=== PATIENT | male | born 1950 | race Caucasian/White ===

== ENCOUNTER 2021-04-05 19:28 | Observation (INO) ==
--- NOTE | 2021-04-05 20:13 | Emergency Department Note ---
History of Present Illness General Chief complaint: Abdominal Pain Stated complaint: EXTREME PAIN LEFT ABDOMEN, CAN'T EAT/DRING Time Seen by Provider: 04/05/21 19:49 Source: patient Mode of arrival: ambulatory Limitations: no limitations History of Present Illness Maximum Pain Intensity: 6 This patient is a 70-year-old male who comes in with left lower abdominal pain for several weeks it gets intense at times he is not been feeling well for 2 months he is normally very active runner and he has been losing weight significantly he is not able to eat he says when he eats he gets very nauseated he is lost a lot of muscle mass. He has not seen a doctor in years and is on no medication and knows of no medical problems. He said no fall or trauma. No fever or chills. No urinary symptoms such as dysuria hematuria no melena stool he says he does have some blood at times at night but that is been going on chronically. Occasionally pain radiates to his testicle but no testicular pain swelling or redness. He has been during the vaccine x2. No chest pain shortness breath or cough. No sick contacts. No focal numbness or weakness. Nothing particular makes his pain better or worse Home Medications Medication Instructions Recorded Confirmed Type cholecalciferol (vitamin D3) 50 50 mcg PO HS 04/05/21 04/05/21 History mcg (2,000 unit) capsule (Vitamin D3) diphenhydramine HCl 50 mg capsule 50 mg PO HS PRN 04/05/21 04/05/21 History multivitamin 1 tab PO HS 04/05/21 04/05/21 History omega 7-kru-sno-fish oil 500 mg 1 cap PO HS 04/05/21 04/05/21 History (200mg-300mg)-1,000 mg capsule Allergies Allergy/AdvReac Type Severity Reaction Status Date / Time No Known Allergies Allergy Unverified 04/05/21 20:51 Past Med/Surg History Social History Smoking Status: Never smoker Feels Safe at Home: Yes Immunizations: Past medical historydenies any known medical history although he has had very little interaction with the healthcare system Social history he lives with his he is physically active. 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 He denies that he takes Tylenol with that and the Benadryl preparation does not have Tylenol in it Review of Systems A total of 10 systems reviewed and were otherwise negative Physical Exam Vital Signs Vital Signs - 24 hr 04/05/21 19:34 04/05/21 20:33 04/05/21 20:53 Temperature 36.3 C L Temperature Source Temporal Artery Scan Pulse Rate 52 L 58 L 60 Pulse Rate [Left] Pulse Rate from SpO2 Sensor 62 Pulse Rhythm [Left] Pulse Strength [Left] Respiratory Rate 20 18 22 Respiratory Effort / Characteristics Non-Labored Spontaneous Respiratory Depth Normal Respiratory Pattern Regular Blood Pressure 127/84 132/81 130/74 Blood Pressure Mean 98 98 92 Pulse Oximetry 95 93 Oxygen Delivery Method Room Air Sepsis Recent Fever Within 48 Hours No Sepsis New/Unexplained Change in Mental Status No Sepsis Action Taken by Nursing No Action Required 04/05/21 21:00 04/05/21 21:24 04/05/21 23:47 Temperature Temperature Source Pulse Rate 62 55 L Pulse Rate [Left] 75 Pulse Rate from SpO2 Sensor 60 Pulse Rhythm [Left] Regular Pulse Strength [Left] Normal Respiratory Rate 17 18 Respiratory Effort / Characteristics Non-Labored Spontaneous Respiratory Depth Normal Respiratory Pattern Blood Pressure 127/77 Blood Pressure Mean 93 Pulse Oximetry 98 96 98 Oxygen Delivery Method Room Air Room Air Sepsis Recent Fever Within 48 Hours Sepsis New/Unexplained Change in Mental Status Sepsis Action Taken by Nursing General: Well developed well nourished cachectic older male who appears in no acute distress, breathing comfortably on room air. Normal speech HEENT: Normal cephalic atraumatic. Pupils are equal round and reactive to light. Extraocular movements are intact. Oropharynx is pink with moist mucous membranes. No swelling of the mouth lips or tongue. Neck: Supple with a midline trachea. No meningeal signs or stiffness, no JVD or bruits. No Stridor. Chest: Clear to auscultation bilaterally. No wheezes or rhonchi. No increased work of breathing. Heart: Regular rate and rhythm without murmurs or gallops. Abdomen: Soft nontender, nondistended without rebound guarding or rigidity. : Normal male genitalia no testicular swelling masses in the scrotum or tenderness redness or warmth Extremities: No cyanosis clubbing or edema. No calf tenderness or assymetry Spine/Back. Non tender to palpation. No CVA tenderness Skin: Good turgor without rashes. Neurologic exam: Cranial nerves two through 12 are intact. Motor and sensation are intact and symmetrical throughout. Course Administered Medications Ketorolac Tromethamine (Ketorolac Tromethamine 15 Mg/Ml Vial) 15 mg IV Q6H PRN PRN Reason: Moderate Pain Stop: 04/11/21 00:04 Last Admin: 04/06/21 00:23 Dose: 15 mg Documented by: [id number] Discontinued Medications Sodium Chloride (Nss) 500 mls @ 999 mls/hr IV .Q31M PATIENCE Stop: 04/05/21 20:45 Last Infusion: 04/05/21 21:26 Dose: 0 mls/hr Documented by: [id number] Admin: 04/05/21 20:53 Dose: 999 mls/hr Documented by: [id number] Ioversol (Optiray 320 100ml) 94 ml IV ONCE ONE Stop: 04/05/21 21:24 Last Admin: 04/05/21 21:23 Dose: 1 ml Documented by: [id number] Medical Decision Making Differential Diagnosis Weakness, dehydration, electrolyte or metabolic abnormality, malignancy, colitis, diverticulitis, anemia, vivid, endocrinologic, anemia Medical Records Attestation: I reviewed the patient's medical records. Home Medications Current Medication List: was personally reviewed by me Laboratory Data Attestation: I reviewed the patient's lab results. Result diagrams: 04/05/21 20:37 04/05/21 20:37 Lab Results 04/05/21 04/05/21 04/05/21 Range/Units 20:32 20:37 20:37 WBC 8.44 (4.8-10.8) K/uL RBC 4.03 L (4.7-6.1) M/uL Hgb 13.0 L (14.0-18.0) g/dL Hct 37.7 L (42-52) % MCV 93.5 (80-100) fL MCH 32.3 (25-34) pg MCHC 34.5 (32-36) g/dL RDW Std Deviation 44.1 (36.4-46.3) fL RDW Coeff of Russ 12.8 (11.5-14.5) % Plt Count 236 (130-400) K/uL MPV 10.0 (7.4-10.4) fL Immature Gran % (Auto) 0.1 % Neut % (Auto) 85.9 % Lymph % (Auto) 6.0 % [place] % (Auto) 7.0 % Eos % (Auto) 0.9 % Baso % (Auto) 0.1 % Neut # (Auto) 7.24 H (1.4-6.5) K/uL Lymph # (Auto) 0.51 L (1.2-3.4) K/uL [place] # (Auto) 0.59 (0.11-0.59) K/uL Eos # (Auto) 0.08 (0-0.5) K/uL Baso # (Auto) 0.01 (0-0.2) K/uL Immature Gran # (Auto) 0.01 (0.00-0.02) K/uL PT 10.6 (9.0-12.0) Seconds INR 1.0 (0.9-1.1) Sodium (136-145) mmol/L Potassium (3.5-5.1) mmol/L Chloride (98-107) mmol/L Carbon Dioxide (21-32) mmol/L Anion Gap (3-11) BUN (7-18) mg/dl Creatinine (0.6-1.4) mg/dl Est Cr Clr Drug Dosing ml/min Est GFR ( Amer) ml/min Est GFR (Non-Af Amer) ml/min BUN/Creatinine Ratio (10-20) Glucose (70-99) mg/dl Lactate (0.4-2.0) mmol/L Calcium (8.5-10.1) mg/dl Magnesium (1.8-2.4) mg/dl Total Bilirubin (0.2-1) mg/dl AST (15-37) U/L ALT (12-78) U/L Alkaline Phosphatase (45-117) U/L Total Creatine Kinase (39-308) U/L Troponin I (0-0.045) ng/ml Total Protein (6.4-8.2) gm/dl Albumin (3.4-5.0) gm/dl Globulin (2.5-4.0) gm/dl Albumin/Globulin Ratio (0.9-2) TSH (0.300-4.500) uIu/ml Urine Color Dark Yellow Urine Appearance Clear (Clear) Urine pH 6.0 (4.5-7.5) Ur Specific [place] 1.017 (1.000-1.030) Urine Protein 1+ H (Negative) Urine Glucose (UA) Negative (Negative) Urine Ketones 1+ H (Negative) Urine Blood 3+ H (Negative) Urine Nitrite Negative (Negative) Urine Bilirubin Negative (Negative) Urine Urobilinogen Negative (Negative) Ur Leukocyte Esterase 1+ H (Negative) Urine WBC (Auto) 5-10 H (0-5) /hpf Urine RBC (Auto) >30 H (0-4) /hpf U Hyaline Cast (Auto) 0 (0-5) /lpf U Epithel Cells (Auto) 0-5 (0-5) /lpf Urine Bacteria (Auto) Negative (Negative) COVID-19 Eval Order SARS-CoV-2 (PCR) (Negative) 04/05/21 04/05/21 04/05/21 Range/Units 20:37 20:37 21:05 WBC (4.8-10.8) K/uL RBC (4.7-6.1) M/uL Hgb (14.0-18.0) g/dL Hct (42-52) % MCV (80-100) fL MCH (25-34) pg MCHC (32-36) g/dL RDW Std Deviation (36.4-46.3) fL RDW Coeff of Russ (11.5-14.5) % Plt Count (130-400) K/uL MPV (7.4-10.4) fL Immature Gran % (Auto) % Neut % (Auto) % Lymph % (Auto) % [place] % (Auto) % Eos % (Auto) % Baso % (Auto) % Neut # (Auto) (1.4-6.5) K/uL Lymph # (Auto) (1.2-3.4) K/uL [place] # (Auto) (0.11-0.59) K/uL Eos # (Auto) (0-0.5) K/uL Baso # (Auto) (0-0.2) K/uL Immature Gran # (Auto) (0.00-0.02) K/uL PT (9.0-12.0) Seconds INR (0.9-1.1) Sodium 136 (136-145) mmol/L Potassium 4.1 (3.5-5.1) mmol/L Chloride 100 (98-107) mmol/L Carbon Dioxide 27 (21-32) mmol/L Anion Gap 9.0 (3-11) BUN 15 (7-18) mg/dl Creatinine 0.94 (0.6-1.4) mg/dl Est Cr Clr Drug Dosing 57.5 ml/min Est GFR ( Amer) 93.5 ml/min Est GFR (Non-Af Amer) 80.7 ml/min BUN/Creatinine Ratio 15.5 (10-20) Glucose 103 H (70-99) mg/dl Lactate 1.2 (0.4-2.0) mmol/L Calcium 9.1 (8.5-10.1) mg/dl Magnesium 2.2 (1.8-2.4) mg/dl Total Bilirubin 0.5 (0.2-1) mg/dl AST 48 H (15-37) U/L ALT 43 (12-78) U/L Alkaline Phosphatase 173 H (45-117) U/L Total Creatine Kinase 134 (39-308) U/L Troponin I 0.020 (0-0.045) ng/ml Total Protein 6.8 (6.4-8.2) gm/dl Albumin 3.2 L (3.4-5.0) gm/dl Globulin 3.6 (2.5-4.0) gm/dl Albumin/Globulin Ratio 0.9 (0.9-2) TSH 2.440 (0.300-4.500) uIu/ml Urine Color Urine Appearance (Clear) Urine pH (4.5-7.5) Ur Specific [place] (1.000-1.030) Urine Protein (Negative) Urine Glucose (UA) (Negative) Urine Ketones (Negative) Urine Blood (Negative) Urine Nitrite (Negative) Urine Bilirubin (Negative) Urine Urobilinogen (Negative) Ur Leukocyte Esterase (Negative) Urine WBC (Auto) (0-5) /hpf Urine RBC (Auto) (0-4) /hpf U Hyaline Cast (Auto) (0-5) /lpf U Epithel Cells (Auto) (0-5) /lpf Urine Bacteria (Auto) (Negative) COVID-19 Eval Order Covid19 at [facility] SARS-CoV-2 (PCR) (Negative) 04/05/21 Range/Units 21:05 WBC (4.8-10.8) K/uL RBC (4.7-6.1) M/uL Hgb (14.0-18.0) g/dL Hct (42-52) % MCV (80-100) fL MCH (25-34) pg MCHC (32-36) g/dL RDW Std Deviation (36.4-46.3) fL RDW Coeff of Russ (11.5-14.5) % Plt Count (130-400) K/uL MPV (7.4-10.4) fL Immature Gran % (Auto) % Neut % (Auto) % Lymph % (Auto) % [place] % (Auto) % Eos % (Auto) % Baso % (Auto) % Neut # (Auto) (1.4-6.5) K/uL Lymph # (Auto) (1.2-3.4) K/uL [place] # (Auto) (0.11-0.59) K/uL Eos # (Auto) (0-0.5) K/uL Baso # (Auto) (0-0.2) K/uL Immature Gran # (Auto) (0.00-0.02) K/uL PT (9.0-12.0) Seconds INR (0.9-1.1) Sodium (136-145) mmol/L Potassium (3.5-5.1) mmol/L Chloride (98-107) mmol/L Carbon Dioxide (21-32) mmol/L Anion Gap (3-11) BUN (7-18) mg/dl Creatinine (0.6-1.4) mg/dl Est Cr Clr Drug Dosing ml/min Est GFR ( Amer) ml/min Est GFR (Non-Af Amer) ml/min BUN/Creatinine Ratio (10-20) Glucose (70-99) mg/dl Lactate (0.4-2.0) mmol/L Calcium (8.5-10.1) mg/dl Magnesium (1.8-2.4) mg/dl Total Bilirubin (0.2-1) mg/dl AST (15-37) U/L ALT (12-78) U/L Alkaline Phosphatase (45-117) U/L Total Creatine Kinase (39-308) U/L Troponin I (0-0.045) ng/ml Total Protein (6.4-8.2) gm/dl Albumin (3.4-5.0) gm/dl Globulin (2.5-4.0) gm/dl Albumin/Globulin Ratio (0.9-2) TSH (0.300-4.500) uIu/ml Urine Color Urine Appearance (Clear) Urine pH (4.5-7.5) Ur Specific [place] (1.000-1.030) Urine Protein (Negative) Urine Glucose (UA) (Negative) Urine Ketones (Negative) Urine Blood (Negative) Urine Nitrite (Negative) Urine Bilirubin (Negative) Urine Urobilinogen (Negative) Ur Leukocyte Esterase (Negative) Urine WBC (Auto) (0-5) /hpf Urine RBC (Auto) (0-4) /hpf U Hyaline Cast (Auto) (0-5) /lpf U Epithel Cells (Auto) (0-5) /lpf Urine Bacteria (Auto) (Negative) COVID-19 Eval Order SARS-CoV-2 (PCR) NEGATIVE (Negative) Imaging Data Attestation: I personally reviewed and interpreted this imaging study as follows: My Impression: Chest x-rayno acute infiltrate, failure, pneumothorax seen Radiologist's Impression: STAT RAD CT ABDOMEN & PELVIS With Contrast: Diffuse hepatic metastases. Left extrarenal pelvis versus hydronephrosis. Diverticulosis. No obstruction. Normal appendix. No fracture. CT CHEST With Contrast: CT Chest The lungs are clear. Heart size is normal. No pathologically enlarged lymph nodes. No fracture. There is debris in the esophagus which puts the patient at increased risk of aspiration. ECG Data Attestation: I personally reviewed and interpreted this ECG as follows: Indication: + nausea, + vomiting and + weakness Rate (beats per minute): 67 Rhythm: + normal sinus ECG Intervals/blocks: + Left anterior fascicular block, + Normal QRS, + Normal QT and + Normal [place] ECG [place]: + Left axis deviation ECG ST segments: + Normal ST segments ECG Findings: no PACs or no PVCs Comparison ECG Date: no prior available MDM Narrative This patient comes in after having weight loss and abdominal pain he has not gone to the doctor in years. I am concerned that he has been losing weight he looks cachectic. IV access was established and he was hydrated with an IV normal saline bolus. multiple blood testing was obtained. CAT scan was obtained. EKG was obtained. he was reassessed frequently. His EKG does not suggest acute coronary syndrome or arrhythmia. He has no significant electrolyte or metabolic abnormalities. CAT scans of the chest, abdomen, and pelvis shows some debris in the esophagus he also has what appears to be liver mets. He has minimal hard time swallowing. I suspect he may have a GI cancer such as esophageal cancer that has metastasized to the liver. He is not been doing well at home and losing weight. He was hydrated with IV normal saline here. I do think he needs to be admitted for further work-up and likely endoscopy I have consulted Dr. Marino to see him his Covid test was negative. He is cardiac monitoring: Orders placed in EMR for continuous cardiac monitoring and he was found to be in normal sinus rhythm with a rate of 75 Impression & Plan Liver metastases, Weakness, Dehydration, Lab test negative for COVID-19 virus, Dysphagia Discharge Plan Visit Data Chief Complaint: Abdominal Pain Stated Complaint: EXTREME PAIN LEFT ABDOMEN, CAN'T EAT/DRING ED Provider: Don Storey Discharge Problem: Liver metastases, Weakness, Dehydration, Lab test negative for COVID-19 virus, Dysphagia Forms Stand Alone Forms: My [facility] Prescriptions Prescriptions: No Action multivitamin Tablet 1 tab PO HS RF: 0 diphenhydramine HCl [Benadryl] 50 mg Capsule 50 mg PO HS PRN (Reason: Sleep) RF: 0 cholecalciferol (vitamin D3) [Vitamin D3] 50 mcg (2,000 unit) Capsule 50 mcg PO HS RF: 0 omega 4-isq-nyx-fish oil [Fish Oil High Potency] 500-1,000 mg Capsule 1 cap PO HS RF: 0 Referrals Referrals: PCP,NO [Physician] - Discharge Problem: Dysphagia Qualifiers: Dysphagia type: unspecified Qualified Code(s): R13.10 - Dysphagia, unspecified
[2021-04-05] MEDS ORDERED: SODIUM CHLORIDE 0.9% 500 ML IV SCH (20:15)
[2021-04-05 20:52] LABS: Basophils # (auto) 0.01 K/uL (0-0.2); Basophils % (auto) 0.1 %; Eosinophils # (auto) 0.08 K/uL (0-0.5); Eosinophils % (auto) 0.9 %; Hematocrit (blood only) 37.7 % (42-52); Immature Granulocytes # (auto) 0.01 K/uL (0.00-0.02); Immature Granulocytes % (auto) 0.1 %; Lymphocytes # (auto) 0.51 K/uL (1.2-3.4); Mean Corpuscular Hemoglobin 32.3 pg (25-34); Mean Corpuscular Hgb Conc 34.5 g/dL (32-36); Mean Corpuscular Volume 93.5 fL (80-100); Monocytes # (auto) 0.59 K/uL (0.11-0.59); Neutrophils # (auto) 7.24 K/uL (1.4-6.5); Neutrophils % (auto) 85.9 %; Platelet Count 236 K/uL (130-400); RDW Coefficient of Variation 12.8 % (11.5-14.5); RDW Standard Deviation 44.1 fL (36.4-46.3); Red Blood Count 4.03 M/uL (4.7-6.1); White Blood Count 8.44 K/uL (4.8-10.8)
[2021-04-05 21:01] LABS: Prothrombin Time 10.6 Seconds (9.0-12.0)
[2021-04-05 21:09] LABS: Albumin Level 3.2 gm/dl (3.4-5.0); BUN Creatinine Ratio 15.5 (10-20); Calcium 9.1 mg/dl (8.5-10.1); Creatinine Clr Calc Pharmacy 57.5 ml/min; Est GFR (African American) 93.5 ml/min; Est GFR (Non-African American) 80.7 ml/min; Magnesium 2.2 mg/dl (1.8-2.4); Potassium 4.1 mmol/L (3.5-5.1)
[2021-04-05 21:16] LABS: Appearance Urine Clear (Clear); Bacteria Urine Automated Negative (Negative); Bilirubin Urine Negative (Negative); Blood Urine 3+ (Negative); Cast Urine Automated 0 /lpf (0-5); Color Urine Dark Yellow; Epithelial Cell Urine Auto 0-5 /lpf (0-5); Glucose Urine UA Negative (Negative); Ketones Urine 1+ (Negative); Leukocyte Esterase Urine 1+ (Negative); Nitrite Urine Negative (Negative); Protein Urine 1+ (Negative); RBC Urine Automated >30 /hpf (0-4); Specific Gravity Urine 1.017 (1.000-1.030); Urobilinogen Urine Negative (Negative)
[2021-04-05 21:20] LABS: Albumin Globulin Ratio 0.9 (0.9-2); Bilirubin,Total 0.5 mg/dl (0.2-1); Globulin 3.6 gm/dl (2.5-4.0); Thyroid Stimulating Hormone 2.44 uIu/ml (0.300-4.500); Total Protein 6.8 gm/dl (6.4-8.2); Troponin I 0.02 ng/ml (0-0.045)
[2021-04-05] MEDS ORDERED: OPTIRAY 320 100ml IV ONE (21:23)
--- NOTE | 2021-04-05 23:50 | History & Physical Report ---
Date of Service April 05, 2021 Assessment & Plan (1) Liver metastases: Plan: Diffuse hepatic metastases/abnormal weight loss/vomiting with liquids and solids/esophageal debris- NPO NSS + KCl 20 mEq at 100 mils per hour Famotidine 20 mg IV every 12 hours Zofran 4 mg IV every 6 hours as needed Toradol 15 mg IV every 6 hours as needed moderate pain Consult gastroenterology Consult oncology (2) Vomiting: Plan: See above (3) Esophagus disorder: Plan: Debris noted in esophagus on CT scan Inability to swallow liquids or solids Concern regarding esophageal cancer and obstruction (4) Weight loss, abnormal: Plan: Unspecified but significant amount of weight loss concerns for patient and (5) Weakness: Plan: See above History of Present Illness Chief Complaint: The patient presents to the emergency department with several weeks of generalized abdominal pain and weight loss, with more recent issues with inability to hold down solid or liquid foods Primary Care Provider: Jack Lynn MD The patient is a 70-year-old male with no significant past medical history, who presents with the above symptoms. He reports that he runs every other day, and on the opposite days, does exercise such as push-ups. He presents with worsening symptoms and he and his are concerned regarding his excessive weight loss and inability to hold food or liquids down. They cannot quantitate how much weight he has lost and over what interval of time. Allergies Allergy/AdvReac Type Severity Reaction Status Date / Time No Known Allergies Allergy Unverified 04/05/21 20:51 Home Medications Medication Instructions Recorded Confirmed Type cholecalciferol (vitamin D3) 50 50 mcg PO HS 04/05/21 04/05/21 History mcg (2,000 unit) capsule (Vitamin D3) diphenhydramine HCl 50 mg capsule 50 mg PO HS PRN 04/05/21 04/05/21 History multivitamin 1 tab PO HS 04/05/21 04/05/21 History omega 6-biv-nbg-fish oil 500 mg 1 cap PO HS 04/05/21 04/05/21 History (200mg-300mg)-1,000 mg capsule Past Med/Surg History Social History Smoking Status: Never smoker Hx Alcohol Use: No Hx Substance Use: No Preferred Language: Hong Konger Beliefs That Will Affect Care: None Current Living Situation: Spouse Other Information That Helps Us Care for You: No Feels Safe at Home: Yes Safety Concerns: Feels Safe At This Time Review of Systems Review of Systems: The patient denies chest pain, palpitations, shortness of breath, dyspnea on exertion, cough, lower extremity swelling, sore throat, fevers, chills, sweats, diarrhea , constipation, blood in urine or stool, dysuria, urinary frequency or urgency, lightheadedness, dizziness, headache, memory loss, loss of consciousness, rash, abnormal bruising or bleeding, imbalance, focal weakness, numbness or tingling in arms or legs, generalized arthralgias or myalgias, back or neck pain, or night sweats. The review of systems is otherwise negative other than for that already noted above, and at least 10 systems have been reviewed. Physical Exam Physical Exam: The patient is awake, alert and oriented 3, appears very thin, normocephalic and atraumatic, lying in bed and in no acute distress. HEENT--PERRL, EOMI, mucous membranes and oropharynx normal. Neck--supple. No JVD. No bruits. Thyroid normal, trachea midline, no adenopathy. Heart--normal S1 and S2. No murmurs, rubs or gallops. Lungs--clear bilaterally, no respiratory distress, no accessory muscle use. Abdomen--normal bowel sounds and soft. Nontender. Nondistended. Extremities--no cyanosis or clubbing. No edema. Dermatologic--normal skin turgor, normal color, no abnormal lymph nodes, no rash. Neurologic--cranial nerves II through XII grossly intact. Rheumatologic--normal range of motion. Psychiatric--normal affect. Results & Data Results & Data ([facility]) Vital Signs (Past 12 Hours) Vital Signs Temp Pulse Pulse Resp BP Pulse Ox 04/05/21 23:47 75 18 98 04/05/21 21:24 55 L 96 04/05/21 21:00 62 17 127/77 98 04/05/21 20:53 60 22 130/74 93 04/05/21 20:33 58 L 18 132/81 04/05/21 19:34 97.3 F L 52 L 20 127/84 95 Laboratory Results Laboratory Results WBC 8.44 K/uL (4.8-10.8) 04/05/21 20:37 RBC 4.03 M/uL (4.7-6.1) L 04/05/21 20:37 Hgb 13.0 g/dL (14.0-18.0) L 04/05/21 20:37 Hct 37.7 % (42-52) L 04/05/21 20:37 MCV 93.5 fL (80-100) 04/05/21 20:37 MCH 32.3 pg (25-34) 04/05/21 20:37 MCHC 34.5 g/dL (32-36) 04/05/21 20:37 RDW Std Deviation 44.1 fL (36.4-46.3) 04/05/21 20:37 RDW Coeff of Russ 12.8 % (11.5-14.5) 04/05/21 20: Plt Count 236 K/uL (130-400) 04/05/21 20:37 MPV 10.0 fL (7.4-10.4) 04/05/21 20:37 Immature Gran % (Auto) 0.1 % 04/05/21 20:37 Neut % (Auto) 85.9 % 04/05/21 20:37 Lymph % (Auto) 6.0 % 04/05/21 20:37 [place] % (Auto) 7.0 % 04/05/21 20:37 Eos % (Auto) 0.9 % 04/05/21 20:37 Baso % (Auto) 0.1 % 04/05/21 20:37 Neut # (Auto) 7.24 K/uL (1.4-6.5) H 04/05/21 20:37 Lymph # (Auto) 0.51 K/uL (1.2-3.4) L 04/05/21 20:37 [place] # (Auto) 0.59 K/uL (0.11-0.59) 04/05/21 20:37 Eos # (Auto) 0.08 K/uL (0-0.5) 04/05/21 20:37 Baso # (Auto) 0.01 K/uL (0-0.2) 04/05/21 20:37 Immature Gran # (Auto) 0.01 K/uL (0.00-0.02) 04/05/21 20:37 PT 10.6 Seconds (9.0-12.0) 04/05/21 20:37 INR 1.0 (0.9-1.1) 04/05/21 20:37 Sodium 136 mmol/L (136-145) 04/05/21 20:37 Potassium 4.1 mmol/L (3.5-5.1) 04/05/21 20:37 Chloride 100 mmol/L (98-107) 04/05/21 20:37 Carbon Dioxide 27 mmol/L (21-32) 04/05/21 20:37 Anion Gap 9.0 (3-11) 04/05/21 20:37 BUN 15 mg/dl (7-18) 04/05/21 20:37 Creatinine 0.94 mg/dl (0.6-1.4) 04/05/21 20:37 Est Cr Clr Drug Dosing 57.5 ml/min 04/05/21 20:37 Est GFR ( Amer) 93.5 ml/min 04/05/21 20:37 Est GFR (Non-Af Amer) 80.7 ml/min 04/05/21 20:37 BUN/Creatinine Ratio 15.5 (10-20) 04/05/21 20:37 Glucose 103 mg/dl (70-99) H 04/05/21 20:37 Lactate 1.2 mmol/L (0.4-2.0) 04/05/21 20:37 Calcium 9.1 mg/dl (8.5-10.1) 04/05/21 20:37 Magnesium 2.2 mg/dl (1.8-2.4) 04/05/21 20:37 Total Bilirubin 0.5 mg/dl (0.2-1) 04/05/21 20:37 AST 48 U/L (15-37) H 04/05/21 20:37 ALT 43 U/L (12-78) 04/05/21 20:37 Alkaline Phosphatase 173 U/L (45-117) H 04/05/21 20:37 Total Creatine Kinase 134 U/L (39-308) 04/05/21 20:37 Troponin I 0.020 ng/ml (0-0.045) 04/05/21 20:37 Total Protein 6.8 gm/dl (6.4-8.2) 04/05/21 20:37 Albumin 3.2 gm/dl (3.4-5.0) L 04/05/21 20:37 Globulin 3.6 gm/dl (2.5-4.0) 04/05/21 20:37 Albumin/Globulin Ratio 0.9 (0.9-2) 04/05/21 20:37 TSH 2.440 uIu/ml (0.300-4.500) 04/05/21 20:37 Urine Color Dark Yellow 04/05/21 20: Urine Appearance Clear (Clear) 04/05/21 20:32 Urine pH 6.0 (4.5-7.5) 04/05/21 20:32 Ur Specific [place] 1.017 (1.000-1.030) 04/05/21 20:32 Urine Protein 1+ (Negative) H 04/05/21 20:32 Urine Glucose (UA) Negative (Negative) 04/05/21 20: Urine Ketones 1+ (Negative) H 04/05/21 20:32 Urine Blood 3+ (Negative) H 04/05/21 20:32 Urine Nitrite Negative (Negative) 04/05/21 20:32 Urine Bilirubin Negative (Negative) 04/05/21 20:32 Urine Urobilinogen Negative (Negative) 04/05/21 20:32 Ur Leukocyte Esterase 1+ (Negative) H 04/05/21 20:32 Urine WBC (Auto) 5-10 /hpf (0-5) H 04/05/21 20:32 Urine RBC (Auto) >30 /hpf (0-4) H 04/05/21 20:32 U Hyaline Cast (Auto) 0 /lpf (0-5) 04/05/21 20:32 U Epithel Cells (Auto) 0-5 /lpf (0-5) 04/05/21 20:32 Urine Bacteria (Auto) Negative (Negative) 04/05/21 20:32 COVID-19 Eval Order Covid19 at [facility] 04/05/21 21:05 SARS-CoV-2 (PCR) NEGATIVE (Negative) 04/05/21 21:05 Diagnostic Findings [facility] Patient: CAROLZ OLIVERA (Male) : 46 Status: ER Date: 04/05/21 22:02 Room #: History: weight loss n/v Slices: 625 Priors: Tech: Elgin Bañuelos @ [phone] Exams: CT CHEST With Contrast Contrast: IV Amt: 94 ml optiray Accession Numbers: [id number] Referring Physician: SAMARA SOLIS Preliminary Findings Only See Final Report For Complete Findings CT CHEST With Contrast: The lungs are clear. Heart size is normal. No pathologically enlarged lymph nodes. No fracture. There is debris in the esophagus which puts the patient at increased risk of aspiration. Radiologist: Lilly Minor MD Study ready at 22:06 and initial results transmitted at 22:25 *This report constitutes a preliminary interpretation only. Non-acute findings f elt to be unrelated to the clinical presentation may not be discussed in this report. The study will be interpreted and a final report will be generated by the local Radiologist the following shift. To reach the hospital radiology department call [phone]. If a discrepancy is found between the preliminary and final interpretations of this study, please notify us via our Client Portal at [email or web address] can also fax this report with a description of the discrepancy, or include the final report, to our daytime fax number [phone].If faxing, please indicate the severity of discrepancy using one of the following categories: [ ] 1 - Agree/Informational [ ] 2 - Unlikely to Affect Management [ ] 3 - Possible Eventual Change of Management [ ] 4 - Probable Immediate Change of Management For all other patient related information, please fax us at [phone]. [id number] [facility] Patient: CARLOZ OLIVERA (Male) : 46 Status: ER Date: 04/05/21 22:02 Room #: History: weight loss llq pain appen pres Slices: 640 Priors: Tech: EddaElgin thomas @ [phone] Exams: CT ABDOMEN & PELVIS With Contrast Contrast: IV Amt: 94 ml optiray Accession Numbers: [id number] Referring Physician: SAMARA SOLIS Preliminary Findings Only See Final Report For Complete Findings CT ABDOMEN & PELVIS With Contrast: Diffuse hepatic metastases. Left extrarenal pelvis versus hydronephrosis. Diverticulosis. No obstruction. Normal appendix. No fracture. Radiologist: Lilly Minor MD Study ready at 22:06 and initial results transmitted at 22:27 *This report constitutes a preliminary interpretation only. Non-acute findings felt to be unrelated to the clinical presentation may not be discussed in this report. The study will be interpreted and a final report will be generated by the local Radiologist the following shift. To reach the [facility] radiology d epartment call [phone]. If a discrepancy is found between the preliminary and final interpretations of this study, please notify us via our Client Portal at [email or web address] can also fax this report with a description of the discrepancy, or include the final report, to our daytime fax number [phone].If faxing, please indicate the severity of discrepancy using one of the following categories: [ ] 1 - Agree/Informational [ ] 2 - Unlikely to Affect Management [ ] 3 - Possible Eventual Change of Management [ ] 4 - Probable Immediate Change of Management For all other patient related information, please fax us at [phone]. [id number] Code Status & VTE Plan Code Status Full code VTE Prophylaxis Plan VTE Prophylaxis will be ordered: Yes PG Care Time/CCT Total # of Minutes Spent Total Time Spent with Patient: Total time spent is greater than 50% in coordination of care (as documented) at patient's floor/unit and/or counseling patient: Coding Level of Care Code 33662 Initial Inpt Care Lvl 2 Diagnoses Liver metastases C78.7 Weakness R53.1 Weight loss, abnormal R63.4 Vomiting R11.10 Esophagus disorder K22.9
[2021-04-06] MEDS: KETOROLAC TROMETHAMINE 15 MG/ML VIAL IV PRN ×3 (00:23→21:25)
[2021-04-06] MEDS ORDERED: SODIUM CHLORIDE 0.9% 1000ML 500 ML IV ONE (01:34)
[2021-04-06] MEDS ORDERED: ONDANSETRON INJ 2 MG/ML 2 ML VIAL IV PRN (02:20)
[2021-04-06] MEDS: FAMOTIDINE 20 MG in SYRINGE 3 ML IV SCH ×2 (04:23→13:06)
[2021-04-06] MEDS: NSS + 20MEQ KCL 20 MEQ/1,000 ML BAG IV SCH ×3 (04:24→15:57)
[2021-04-06 06:48] LABS: Basophils # (auto) 0.02 K/uL (0-0.2); Basophils % (auto) 0.3 %; Eosinophils # (auto) 0.09 K/uL (0-0.5); Eosinophils % (auto) 1.4 %; Hemoglobin 12.3 g/dL (14.0-18.0); Immature Granulocytes # (auto) 0.01 K/uL (0.00-0.02); Immature Granulocytes % (auto) 0.2 %; Lymphocytes # (auto) 0.89 K/uL (1.2-3.4); Lymphocytes % (auto) 13.8 %; Mean Corpuscular Hemoglobin 32.2 pg (25-34); Mean Corpuscular Hgb Conc 34.2 g/dL (32-36); Mean Corpuscular Volume 94.2 fL (80-100); Mean Platelet Volume 9.8 fL (7.4-10.4); Monocytes # (auto) 0.42 K/uL (0.11-0.59); Monocytes % (auto) 6.5 %; Neutrophils # (auto) 5.04 K/uL (1.4-6.5); Neutrophils % (auto) 77.8 %; Platelet Count 195 K/uL (130-400); Red Blood Count 3.82 M/uL (4.7-6.1); White Blood Count 6.47 K/uL (4.8-10.8)
[2021-04-06 07:14] LABS: Albumin Level 2.7 gm/dl (3.4-5.0); BUN Creatinine Ratio 20.3 (10-20); Calcium 8.7 mg/dl (8.5-10.1); Creatinine Clr Calc Pharmacy 65.6 ml/min; Est GFR (African American) 100.4 ml/min; Est GFR (Non-African American) 86.6 ml/min; Magnesium 1.9 mg/dl (1.8-2.4); Potassium 4.2 mmol/L (3.5-5.1)
[2021-04-06 07:17] LABS: Albumin Globulin Ratio 0.8 (0.9-2); Bilirubin,Total 0.5 mg/dl (0.2-1); Globulin 3.4 gm/dl (2.5-4.0); Total Protein 6.1 gm/dl (6.4-8.2)
--- NOTE | 2021-04-06 07:45 | XRay Report ---
XR chest 1V portable INDICATION: MN ^weakness . TECHNIQUE: Single frontal radiograph of the chest was obtained. Comparison: None available at the time of this dictation. FINDINGS: No lines and tubes are seen. The aorta is tortuous. The remainder of the cardiomediastinal silhouette is unremarkable. The lungs are clear. No evidence of pleural effusion or pneumothorax. IMPRESSION: No acute chest disease. ACT 112: Negative or not required by law. Electronically signed by: Richard Valdez M.D. 04/06/2021 7:44 AM
--- NOTE | 2021-04-06 07:54 | CT Scan Report ---
CT chest diagnostic w con INDICATION: MN ^weight loss, nausea. TECHNIQUE: Multidetector row helical CT of the chest was performed. Coronal and sagittal reformations were obtained. Automated dose lowering techniques and/or adjustment according to patient size were u tilized for this exam. Comparison: None available at the time of this dictation. FINDINGS: Lungs and pleura: Normal. Heart and pericardium: Heart size is normal. No pericardial effusion. Vessels: The ascending aorta is dilated measuring 41 mm. Mediastinum and skyler: The esophagus is patulous with debris noted. Chest wall and lower neck: Unremarkable. Abdomen: For findings below the diaphragm, please refer to CT of the abdomen dated the same. Bones: Degenerative changes in the thoracic spine. IMPRESSION: No evidence of mass or lymphadenopathy. Incidentally noted patulous esophagus. ACT 112: Negative or not required by law. Electronically signed by: Richard Valdez M.D. 04/06/2021 7:53 AM
--- NOTE | 2021-04-06 08:51 | CT Scan Report ---
ABDOMEN AND PELVIS CT WITH IV CONTRAST CT DOSE: 492.58 mGy.cm HISTORY: Acute left lower quadrant abdominal pain with weight loss llq pain, weigt loss TECHNIQUE: Multiaxial CT images of the abdomen and pelvis were performed following the IV administrat ion of 94 cc of Optiray, A dose lowering technique was utilized adhering to the principles of ALARA. COMPARISON STUDY: Chest CT of same day FINDINGS: Mild subsegmental bibasilar atelectasis. No pneumatosis or pneumoperitoneum. The imaged inf erior cardiac chambers are unremarkable. Coronary artery calcifications. Unremarkable spleen, pancrea s and adrenal glands. Mild intrahepatic and extrahepatic biliary ductal prominence. Partially decompr essed gallbladder. Multifocal hepatic metastasis with lesions measuring up to 2.1 cm within the left hepatic lobe and 2.2 cm within the right hepatic lobe. The hepatic and portal veins appear patent. Unremarkable right kidney. External renal pelvis versus hydronephrosis of the left kidney. No obstruc ting ureteral calculus or lesion identified. Partially decompressed urinary bladder with wall thicken ing. Pelvic basin phleboliths. Atherosclerosis of the aorta. Retroperitoneal and suggested iliac litzy n adenopathy. Nonspecific distal esophageal wall thickening. Trace abdominal pelvic ascites with diffuse mesenteric and body wall edema. The stomach is partially decompressed and demonstrates diffuse wall thickening. Masslike thickening involving the proximal gastric body lesser curvature measures approximately 4.5 x 3.3 cm on image 82 series 7. Colonic diverticulosis. Moderate fecal retention. Visualized appendix appears normal. Unremarkable soft tissues. No acute fracture. Severe degeneration of the pubic symphy sis. Severe L5-S1 facet arthrosis with grade 1 anterolisthesis L5 on S1. Lumbar levoscoliosis. Multil evel intervertebral disc space narrowing. Probable hemangioma at T10. IMPRESSION: 1. Distal esophageal wall thickening with masslike thickening involving the lesser curvature of the p roximal gastric body measuring up to 4.5 cm. Findings should be correlated with endoscopy. This findi ng was called/faxed to the floor at time of dictation 2. Multifocal hepatic metastasis with pathologic retroperitoneal adenopathy suspicious for lymphatic metastasis. 3. Trace abdominal pelvic ascites with diffuse mesenteric and body wall edema.. 4. External renal pelvis versus mild hydronephrosis of the left kidney. No urolith identified. 5. Additional findings as above. ACT 112: Negative or not required by law. The above report was generated using voice recognition software. It may contain grammatical, syntax o r spelling errors. Electronically signed by: Christos Man M.D. 04/06/2021 8:49 AM
--- NOTE | 2021-04-06 10:20 | Ultrasound Report ---
US scrotum/testicle CLINICAL INDICATION: MN ^Y ^L testicular pain/mass. TECHNIQUE: Real-time sonographic images of the scrotal contents were obtained. Comparison: None available at the time of this dictation. FINDINGS: The testes are uniform in echogenicity bilaterally. No focal intratesticular lesions are identified. The right testicle measures 3.6 x 2.2 x 2.5 cm. The left testicle measures 3.6 x 2.4 x 2.4 cm. Small epididymal cysts are seen bilaterally measuring up to 3 mm. There are no hydroceles. No varicoceles were seen. IMPRESSION: Unremarkable ultrasound apart from tiny epididymal head cysts. ACT 112: Negative or not required by law. Electronically signed by: Richard Valdez M.D. 04/06/2021 10:18 AM
--- NOTE | 2021-04-06 10:32 | Gastrointestinal Consultation ---
Date of Consultation April 06, 2021 Assessment & Plan (1) Dysphagia: (2) Weight loss, abnormal: (3) Abnormal CT scan, esophagus: -Keep NPO for EGD today -Further recommendations pending results of testing Supervising Physician Co-Signing Physician Notes Agree with MAURICIO Perez as above Abd: Soft, NT, ND, +BS Proceed with EGD now for abnormal CT scan of the esophagus in setting of dysphagia. History of Present Illness Attending Physician: Ramakrishna Diez MD History of Present Illness Patient is a 70 yo male who presented to the emergency room due to ongoing weight loss and abdominal pain. Patient reports he is very physically active but started to note that his endurance was decreasing. He reports that he began to notice he had diffuse abdominal discomfort and felt like there was something stuck in his throat. He notes an abrupt onset of solid & liquid dysphagia. He reports significant weight loss. He denies ever having an EGD or colonoscopy. He denies other chronic medical issues. He denies any family history of GI abnormalities. He is not presently using tobacco or alcohol. In the ED, he was found to have diffuse liver lesions on CT along with a mass- like thickening of the distal esophagus and involvement of the lesser curvature of the proximal gastric body measuring up to 4.5 cm. Patient has been NPO and is open to moving forward with endoscopy. Allergies Allergy/AdvReac Type Severity Reaction Status Date / Time No Known Allergies Allergy Verified 04/06/21 10:58 Home Medications Medication Instructions Recorded Confirmed Type cholecalciferol (vitamin D3) 50 50 mcg PO HS 04/05/21 04/05/21 History mcg (2,000 unit) capsule (Vitamin D3) diphenhydramine HCl 50 mg capsule 50 mg PO HS PRN 04/05/21 04/05/21 History multivitamin 1 tab PO HS 04/05/21 04/05/21 History omega 9-wfh-xot-fish oil 500 mg 1 cap PO HS 04/05/21 04/05/21 History (200mg-300mg)-1,000 mg capsule Patient History Social History Smoking Status: Never smoker Hx Alcohol Use: No Hx Substance Use: No Preferred Language: Azeri Communication Ability: Effective Beliefs That Will Affect Care: None marital status: Current Living Situation: Spouse How many Children do You have: 3 Other Information That Helps Us Care for You: No Feels Safe at Home: Yes Safety Concerns: Feels Safe At This Time Assistive Devices: None Review of Systems Constitutional: + anorexia; no fever and no chills Respiratory: no cough and no dyspnea Cardiovascular: no chest pain Gastrointestinal: + abdominal pain and + dysphagia Musculoskeletal: no problem reported Psychiatric: no problem reported Physical Exam Constitutional: + ill appearing, + thin and + cachectic Respiratory: normal respiratory effort, lungs clear to auscultation Cardiovascular: RRR, no murmur, no edema Gastrointestinal (Abdomen): Inspection/Auscultation: normal bowel sounds Percussion/Palpation: abdomen soft; abdomen nontender Musculoskeletal: Head/Neck/Chest: normocephalic Psychiatric: Orientation: alert and oriented x 3 Results & Data ([facility]) Vital Signs (Past 12 Hours) Vital Signs Temp Pulse Pulse Resp BP BP BP 04/06/21 09:32 89 04/06/21 06:33 36.9 C 55 L 15 116/65 04/06/21 04:04 37.1 C 71 18 121/65 04/06/21 03:00 65 04/06/21 02:20 36.6 C 57 L 14 112/65 04/06/21 01:52 37 C 55 L 16 111/80 04/06/21 01:30 106/67 04/06/21 01:00 115/77 04/06/21 00:30 124/76 04/06/21 00:00 18 106/67 04/05/21 23:47 75 18 04/05/21 23:30 28 H 132/87 04/05/21 23:00 20 135/81 04/05/21 22:30 21 138/87 Pulse Ox Pulse Ox 04/06/21 09:32 04/06/21 06:33 95 04/06/21 04:04 95 04/06/21 03:00 04/06/21 02:20 94 94 04/06/21 01:52 98 04/06/21 01:30 94 04/06/21 01:00 95 04/06/21 00:30 97 04/06/21 00:00 96 04/05/21 23:47 98 04/05/21 23:30 97 04/05/21 23:00 97 04/05/21 22:30 98 PG Care Time/CCT Total # of Minutes Spent Total Time Spent with Patient: Total time spent is greater than 50% in coordination of care (as documented) at patient's floor/unit and/or counseling patient: Coding Level of Care Code 63056 Initial Inpt Care Lvl 3 Diagnoses Dysphagia R13.10 Dysphagia type: unspecified Weight loss, abnormal R63.[address] scan, esophagus R93.3 (1) Dysphagia Dysphagia type: unspecified Qualified Code(s): R13.10 - Dysphagia, unspecified
--- NOTE | 2021-04-06 11:06 | Anesthesiology Consultation ---
Date of Service April 06, 2021 Assessment & Plan (1) Encounter for pre-operative examination: Chart Review Chart Review: Acceptable Risk for Surgery and Patient NOT seen in Pre Admission Testing Consults Requested none History Surgery Operation Date: 04/06/21 16:30 Proposed Procedures p Esophagogastroduodenoscopy Dr Majano - Hollis Burns Case, DO Height/Weight Height: 5 ft 6 in Weight: 59.7 kg Allergies Allergy/AdvReac Type Severity Reaction Status Date / Time No Known Allergies Allergy Verified 04/06/21 10:58 Medications Home Medications Medication Instructions Recorded Confirmed Last Taken cholecalciferol (vitamin D3) 50 50 mcg PO HS 04/05/21 04/05/21 04/04/21 mcg (2,000 unit) capsule (Vitamin D3) diphenhydramine HCl 50 mg capsule 50 mg PO HS PRN 04/05/21 04/05/21 04/04/21 multivitamin 1 tab PO HS 04/05/21 04/05/21 04/04/21 omega 2-lud-yna-fish oil 500 mg 1 cap PO HS 04/05/21 04/05/21 04/04/21 (200mg-300mg)-1,000 mg capsule Active Medications Generic Name Dose Route Start Last Admin Trade Name Freq PRN Reason Stop Dose Admin Potassium Chloride/Sodium Chloride 20 meq in 1,000 mls @ 100 mls/hr 04/06/21 03:00 04/06/21 04:24 Normal Saline W/20 Meq Kcl IV 05/06/21 02:59 100 mls/hr .Q10H PATIENCE Administration Famotidine 20 mg/ Syringe 5 mls @ 2.5 mls/min 04/06/21 03:00 04/06/21 04:23 IV 05/06/21 02:59 2.5 mls/min Q12 PATIENCE Administration Ketorolac Tromethamine 15 mg 04/06/21 00:05 04/06/21 00:23 Ketorolac Tromethamine 15 Mg/Ml Vial IV 04/11/21 00:04 15 mg Q6H PRN Administration Moderate Pain NPO Date Last Intake of Fluids: 04/05/21 Time Last Intake of Fluids: 09:00 Date Last Intake of Solids: 04/05/21 Time Last Intake of Solids: 09:00 Past Medical History Medical History Dysphagia Liver metastases Vomiting Weight loss, abnormal Social History Smoking Status: Never smoker Hx Alcohol Use: No Hx Substance Use: No Physical Exam Vital Signs Last Vital Signs Temp 36.5 C 04/06/21 11:00 Pulse 48 L 04/06/21 11:00 Resp 18 04/06/21 11:00 BP 117/66 04/06/21 11:00 Pulse Ox 96 04/06/21 11:00 Testing Laboratory Results 04/06/21 06:30 04/06/21 06:30 PT 10.6 Seconds (9.0-12.0) 04/05/21 20:37 INR 1.0 (0.9-1.1) 04/05/21 20:37 Urine Color Dark Yellow 04/05/21 20:32 Urine Appearance Clear (Clear) 04/05/21 20:32 Urine pH 6.0 (4.5-7.5) 04/05/21 20:32 Ur Specific [place] 1.017 (1.000-1.030) 04/05/21 20:32 Urine Protein 1+ (Negative) H 04/05/21 20:32 Urine Glucose (UA) Negative (Negative) 04/05/21 20:32 Urine Ketones 1+ (Negative) H 04/05/21 20:32 Urine Nitrite Negative (Negative) 04/05/21 20:32 Ur Leukocyte Esterase 1+ (Negative) H 04/05/21 20:32 Urine WBC (Auto) 5-10 /hpf (0-5) H 04/05/21 20:32 Urine RBC (Auto) >30 /hpf (0-4) H 04/05/21 20:32 U Hyaline Cast (Auto) 0 /lpf (0-5) 04/05/21 20:32 U Epithel Cells (Auto) 0-5 /lpf (0-5) 04/05/21 20:32 Urine Bacteria (Auto) Negative (Negative) 04/05/21 20:32
[2021-04-06] MEDS ORDERED: LIDOCAINE 2% 2 ML VIAL/AMP(20MG/ML) INFIL ONE (11:08)
[2021-04-06] MEDS ORDERED: ONDANSETRON INJ 2 MG/ML 2 ML VIAL ONE (11:08)
[2021-04-06] MEDS ORDERED: PROPOFOL IV EMULSION 10 MG/ML 20 ML VIAL IV ONE (11:08)
[2021-04-06] MEDS ORDERED: MIDAZOLAM HCL 1 MG/ML 2ML VIAL ONE (11:08)
--- NOTE | 2021-04-06 11:30 | GI REPORT ---
Patient Name: Eliseo Perrin Procedure Date: 04/06/2021 10:58 AM Date of : 1950 Admit Type: Inpatient Age: 70 Gender: Male Attending MD: Hollis Majano DO Procedure: Upper GI endoscopy Providers: Hollis Majano DO Referring MD: Don Storey Indications: Dysphagia, Abnormal CT of the GI tract Medicines: Monitored Anesthesia Care Complications: No immediate complications. Estimated Blood Loss: Estimated blood loss: none. Procedure: Pre-Anesthesia Assessment: - Prior to the procedure, a History and Physical was performed, and patient medications and allergies were reviewed. The patient's tolerance of previous anesthesia was also reviewed. The risks and benefits of the procedure and the sedation options and risks were discussed with the patient. All questions were answered, and informed consent was obtained. Prior Anticoagulants: The patient has taken no previous anticoagulant or antiplatelet agents. ASA Grade Assessment: II - A patient with mild systemic disease. After reviewing the risks and benefits, the patient was deemed in satisfactory condition to undergo the procedure. After obtaining informed consent, the endoscope was passed under direct vision. Throughout the procedure, the patient's blood pressure, pulse, and oxygen saturations were monitored continuously. The Endoscope was introduced through the mouth, and advanced to the second part of duodenum. The upper GI endoscopy was accomplished without difficulty. The patient tolerated the procedure well. Findings: One moderate stenosis was found 36 to 39 cm from the incisors. This stenosis measured 1.1 cm (inner diameter) x 3 cm (in length). The stenosis was traversed. Biopsies were taken with a cold forceps for histology. Red blood was found on the lesser curvature of the stomach which limited exam of that area for evaluation to correlate with CT findings. The examined duodenum was normal. Impression: - Esophageal stenosis. Biopsied. - Red blood in the lesser curvature of the stomach. - Normal examined duodenum. Recommendation: - [facility]. - Clear liquid diet. - Use Protonix (pantoprazole) 40 mg IV daily. - Await pathology results. - Return to primary care physician as previously scheduled. Hollis Majano DO 04/06/2021 11:29:45 AM This report has been signed electronically. Note Initiated On: 04/06/2021 10:58 AM Number of Addenda: 0 I attest to the content of the Intraoperative Record and orders documented therein, exceptions below {[id number]}
--- NOTE | 2021-04-06 12:06 | Anesthesiology Progress Note ---
Date of Service April 06, 2021 Anesthesia Post Procedure Vital Signs Vital Signs: Temp Pulse Pulse Resp BP BP BP 04/06/21 12:00 48 L 16 121/77 04/06/21 11:45 45 L 14 119/73 04/06/21 11:30 58 L 16 109/65 04/06/21 11:00 36.5 C 48 L 18 117/66 04/06/21 09:32 89 04/06/21 06:33 36.9 C 55 L 15 116/65 04/06/21 04:04 37.1 C 71 18 121/65 04/06/21 03:00 65 04/06/21 02:20 36.6 C 57 L 14 112/65 04/06/21 01:52 37 C 55 L 16 111/80 04/06/21 01:30 106/67 04/06/21 01:00 115/77 04/06/21 00:30 124/76 04/06/21 00:00 18 106/67 04/05/21 23:47 75 18 04/05/21 23:30 28 H 132/87 04/05/21 23:00 20 135/81 04/05/21 22:30 21 138/87 04/05/21 22:00 64 20 131/82 04/05/21 21:51 65 19 04/05/21 21:24 55 L 04/05/21 21:00 62 17 127/77 04/05/21 20:53 60 22 130/74 04/05/21 20:33 58 L 18 132/81 04/05/21 19:34 36.3 C L 52 L 20 127/84 Pulse Ox Pulse Ox 04/06/21 12:00 97 04/06/21 11:45 96 04/06/21 11:30 97 04/06/21 11:00 96 04/06/21 09:32 04/06/21 06:33 95 04/06/21 04:04 95 04/06/21 03:00 04/06/21 02:20 94 94 04/06/21 01:52 98 04/06/21 01:30 94 04/06/21 01:00 95 04/06/21 00:30 97 04/06/21 00:00 96 04/05/21 23:47 98 04/05/21 23:30 97 04/05/21 23:00 97 04/05/21 22:30 98 04/05/21 22:00 97 04/05/21 21:51 04/05/21 21:24 96 04/05/21 21:00 98 04/05/21 20:53 93 04/05/21 20:33 04/05/21 19:34 95 Pain Intensity Abdomen: Pain Intensity: 3 Transfer of Care Handoff Completed per policy Notes Mental Status: alert / awake / arousable Patient Amnestic to Procedure: Yes Nausea / Vomiting: adequately controlled Pain: adequately controlled Airway Patency, RR, SpO2: stable & adequate BP & HR: stable & adequate Hydration State: stable & adequate Anesthetic Complications: no major complications apparent and Pt Satisfied with anesthetic care
[2021-04-06] MEDS: PANTOprazole 40 MG in SYRINGE 0 ML IV SCH ×2 (13:04→21:24)
--- NOTE | 2021-04-06 14:27 | Electrocardiogram Report ---
Test Reason : Blood Pressure : / mmHG Vent. Rate : 063 BPM Atrial Rate : 063 BPM P-R Int : 176 ms QRS Dur : 110 ms QT Int : 480 ms P-R-T Axes : 054 -43 -26 degrees QTc Int : 491 ms Poor data quality, interpretation may be adversely affected Normal sinus rhythm with sinus arrhythmia Left axis deviation Left anterior fascicular block Minimal voltage criteria for LVH, may be normal variant Abnormal ECG No previous ECGs available Confirmed by Micheal Aguilar ([id number]) on 04/06/2021 2:27:17 PM Referred By: Don Storey Confirmed By:Ramez Aguilar
--- NOTE | 2021-04-06 14:32 | Electrocardiogram Report ---
Test Reason : Blood Pressure : / mmHG Vent. Rate : 063 BPM Atrial Rate : 063 BPM P-R Int : 180 ms QRS Dur : 108 ms QT Int : 462 ms P-R-T Axes : 062 -53 -42 degrees QTc Int : 472 ms Sinus rhythm with Premature atrial complexes Left anterior fascicular block Nonspecific ST abnormality Abnormal ECG When compared with ECG of 05-APR-2021 20:48, (unconfirmed) Premature atrial complexes are now Present Criteria for Lateral infarct are no longer Present Confirmed by Micheal Aguilar ([id number]) on 04/06/2021 2:32:10 PM Referred By: Don Storey Confirmed By:Ramez Aguilar
--- NOTE | 2021-04-06 15:02 | Hospitalist Progress Note ---
Date of Service April 06, 2021 Assessment & Plan (1) Dysphagia: Plan: The patient is a 70-year-old male with no significant past medical history who was admitted to [facility] on 02/03 for two weeks of progressive dysphagia and weight loss; found to have extensive liver metastases. Dysphagia, Weight Loss, Hepatic Metastases CT chest with distal esophageal wall thickening as well as multifocal hepatic metastasis, EGD with distal esophageal stenosis. Biopsy taken and pending. 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 - GI consulted - appreciate recs - esophageal biopsy taken - pending - clear liquids as tolerated for today - continue Protonix 40mg IV BID - continue NSS + 20mEq KCl @100cc/hr - Heme/Onc consulted - pending - patient would like to establish with Palliative care as an outpatient; for now he is considering palliative care approach - will contact Rose Jacinto ([facility] CM) to arrange for appointment before discharge - of note patient would not consider PEG tube FEN/GI: clear liquids, IVFs as stated above DVT Prophylaxis: SCDs, hold chemoppx due to biopsy today Code Status: full code Disposition: med/surg with tele (2) Weight loss, abnormal: (3) Liver metastases: (4) Vomiting: (5) Abnormal CT scan, esophagus: (6) Weakness: (7) Dehydration: Admission and Anticipated Discharge Date Admission Date: April 05, 2021 Supervising Physician Co-Signing Physician Notes Attending attestation Pt seen and examined in concert with Dr. Burrows. In agreement with the documented findings as noted in the resident documentation with any exceptions or additions as noted here. Pt resting in bed with stable dysphagia, more concerned re: course of care, available intervention and timing of results. On examination, S1/S2 nl RRR no MCG. CTAB. Abd NT/ND BS+ve Dysphagia in the setting of newly diagnosed esophageal mass with ?metastatic hepatic disease - gastroenterology consultation - EGD completed today with biopsy sent to pathology. Patient considering palliative care as outpatient. Defers formal nutrition consultation at this time. Else see resident documentation as noted. Subjective Received Toradol x1 for pain overnight. This morning the patient reports two months of progressive odynophagia that led to inability to tolerate liquids or solids as of 1 week ago. Also significant weight loss during this time. Also had vague left-sided abdominal pain without diarrhea or hematemesis/melena. Review of Systems Review of Systems: All systems reviewed & are unremarkable except as noted in HPI & below Physical Exam Physical Exam: General: A&Ox3. NAD. Cooperative. Thin/cachectic. HEENT: Atraumatic, normocephalic. Pulm: CTAB A&P. -wheezes, -rales, -rhonchi. Symmetrical chest rise. No increase work of breathing. No respiratory distress. Cardiac: RRR, -mrg. Radial pulses intact and symmetrical. Abdominal: soft, non-tender, non-distended, BS x 4 Skin: warm, dry, no rash Results & Data Results & Data ([facility]) Vital Signs (Past 12 Hours) Vital Signs Temp Pulse Pulse Resp BP BP Pulse Ox 04/06/21 12:00 48 L 16 121/77 97 04/06/21 11:45 45 L 14 119/73 96 04/06/21 11:30 58 L 16 109/65 97 04/06/21 11:00 36.5 C 48 L 18 117/66 96 04/06/21 09:32 89 04/06/21 06:33 36.9 C 55 L 15 116/65 95 04/06/21 04:04 37.1 C 71 18 121/65 95 Resident Activity Tracking Resident Involvement: Resident Care Provided Care Provided: Adult Hospital Medicine (1) Dysphagia Dysphagia type: unspecified Qualified Code(s): R13.10 - Dysphagia, unspecifi ed
[2021-04-07 07:54] LABS: Basophils # (auto) 0.02 K/uL (0-0.2); Basophils % (auto) 0.2 %; Eosinophils # (auto) 0.13 K/uL (0-0.5); Eosinophils % (auto) 1.5 %; Hematocrit (blood only) 36.3 % (42-52); Hemoglobin 12.2 g/dL (14.0-18.0); Immature Granulocytes # (auto) 0.01 K/uL (0.00-0.02); Immature Granulocytes % (auto) 0.1 %; Lymphocytes # (auto) 0.67 K/uL (1.2-3.4); Lymphocytes % (auto) 7.9 %; Mean Corpuscular Hemoglobin 31.9 pg (25-34); Mean Corpuscular Hgb Conc 33.6 g/dL (32-36); Mean Platelet Volume 10.2 fL (7.4-10.4); Monocytes # (auto) 0.55 K/uL (0.11-0.59); Monocytes % (auto) 6.5 %; Neutrophils # (auto) 7.12 K/uL (1.4-6.5); Neutrophils % (auto) 83.8 %; Platelet Count 225 K/uL (130-400); RDW Coefficient of Variation 13.2 % (11.5-14.5); Red Blood Count 3.82 M/uL (4.7-6.1)
[2021-04-07] MEDS: PANTOprazole 40 MG in SYRINGE 0 ML IV SCH (08:20)
[2021-04-07 08:23] LABS: Albumin Level 2.6 gm/dl (3.4-5.0); BUN Creatinine Ratio 23.6 (10-20); Calcium 8.5 mg/dl (8.5-10.1); Creatinine Clr Calc Pharmacy 63.9 ml/min; Est GFR (African American) 98.5 ml/min; Potassium 4.3 mmol/L (3.5-5.1)
[2021-04-07 08:26] LABS: Albumin Globulin Ratio 0.8 (0.9-2); Bilirubin,Total 0.6 mg/dl (0.2-1); Globulin 3.4 gm/dl (2.5-4.0)
--- NOTE | 2021-04-07 09:17 | Consultation Report ---
MEDICAL ONCOLOGY CONSULTATION DATE OF SERVICE: 04/07/2021 REASON FOR CONSULTATION: Suspected metastatic esophageal cancer. HISTORY OF PRESENT ILLNESS: The patient is a very pleasant 70-year-old gentleman who was admitted to [facility] on 04/05 with progressive dysphagia, anorexia and weight loss. This ge ntleman has enjoyed relatively normal health, is very active, exercising frequently including running and walking. Relates a 2-month history of progressive dysphagia. He also associates progressive ano rexia and a 10-pound weight loss in that timeframe. He describes difficulty with both solids and liq uids, which prompted his visit to our Emergency Room. Mr. Perrin underwent imaging. Specifically, CT scan of the chest, abdomen and pelvis revealing distal esophageal wall thickening with mass-like thickening involving the lesser curvature of the proximal gastric body measuring up to 4.5 cm. Multi focal hepatic metastatic lesions were also seen. Pathologic retroperitoneal adenopathy suspicious fo r lymphatic metastasis. Trace abdominopelvic ascites and diffuse mesenteric body wall edema was also described. Appropriately, GI was asked to weigh in on Mr. Perrin's case and EGD was carried out y day by Dr. Hollis Majano. The endoscope describes moderate stenosis found at 36-39 cm from the in cisors. Stenosis measured 1.1 cm x 3 cm in length. Cold biopsies were taken with pathology pending. Mr. Perrin is realistic, understands that he probably suffers from metastatic esophageal cancer a nd specifically questioned his desire to pursue salvage therapy as it would appear the liver is now i nvolved and the disease is not curable. He is not experiencing pain or discomfort and anticipates [facility] later on today. PAST MEDICAL HISTORY: Essentially negative. CURRENT MEDICATIONS: Include omega-3 fish oil 1 capsule p.o. daily, multivitamin 1 capsule p.o. jen y, Benadryl 50 mg p.o. at bedtime p.r.n., cholecalciferol 50 mcg p.o. at bedtime. ALLERGIES: No known drug allergies. 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 He is . He is a nonsmoker, nondrinke r, nonillicit drug user. FAMILY HISTORY: Noncontributory. REVIEW OF SYSTEMS: CONSTITUTIONAL: Positive for anorexia and a 10-pound weight loss. No fevers, chills or sweats. SKIN: No rashes or lesions. No history of dermatoses. HEENT: Negative for headaches, lightheadedness or dizziness. No acute visual or hearing deficits. No sinus symptoms or sore throat. Positive for dysphagia. LYMPH NODES: No history of lymphoproliferative disease. CARDIAC: No history of coronary artery disease, no angina or palpitations. PULMONARY: No history of COPD. He is not short of breath, dyspneic or orthopneic. No cough or hemo ptysis. GASTROINTESTINAL: Again, progressive dysphagia, difficulties with liquids and solids. He denies edda rrhea, constipation, hematochezia or melena stools. GENITOURINARY: No hematuria, dysuria, or urinary incontinence. No history of prostate disease. MUSCULOSKELETAL: No arthralgias or myalgias. No focal muscle weakness. ENDOCRINE: Negative for diabetes or thyroid disease. NEUROLOGIC: Negative for seizure, stroke or migraine headache. HEMATOLOGIC: Negative for anemia, thrombophilia or bleeding diathesis. PHYSICAL EXAMINATION: GENERAL: A very pleasant 70-year-old gentleman, awake, alert, appropriate, in no acute distress. VITAL SIGNS: Temperature 36.7, pulse 50, respiratory rate 23, blood pressure 102/67. SKIN: Warm, dry, noncyanotic without petechia, rash or ecchymosis. HEENT: Head is atraumatic, normocephalic. Eyes: PERRLA. Nares patent without rhinorrhea or discha rge. Throat clear. Tongue midline. No buccal lesions or ulcerations. NECK: Supple without JVD or thyromegaly. LYMPH NODES: There is a palpable subcentimeter lymph node in the left posterior cervical region. HEART: Regular rate and rhythm. No clicks, rubs, murmurs or gallops. LUNGS: Clear to auscultation bilaterally. ABDOMEN: Soft, nontender, nondistended, without palpable hepatosplenomegaly. EXTREMITIES: No clubbing, cyanosis or edema. MUSCULOSKELETAL: Strength and pulses are equal in all 4 quadrants. NEUROLOGICAL: Grossly intact. LABORATORY DATA: WBC count 8500, hemoglobin 12.2, platelet count 225,000, absolute neutrophil count 7120. Electrolytes are pending. RADIOGRAPHIC DATA: As described in the HPI. IMPRESSION: 1. Probable metastatic esophageal cancer, biopsy pending. 2. Anorexia/weight loss. PLAN: I engaged in a very nice discussion with Mr. Perrin. He seems to be quite realistic with hi s circumstance. Clearly, there is evidence for mets to liver with a primary distal esophageal lesion . Stage IV esophageal cancer is not curable, but certainly could be offered salvage chemotherapy and if HER-2/mahesh positive, can possibly administer anti-HER-2/mahesh agents along with a combination therap y. Mr. Gomes made it clear he is very much into life quality and expressed concern about potential toxicity associated with chemotherapy. He has agreed post-discharge to at least convene to discuss d iagnosis, prognosis and treatment options. He asked appropriate questions about palliative care as vega mcknight. Fortunately, other than his nutritional status, he is not experiencing any pain or discomfort a t this time. We will plan on engaging with Mr. Perrin and his in the outpatient setting. Any questions or concerns, please feel free to contact me at any time. Job ID: [id number]
--- NOTE | 2021-04-07 10:29 | Communication Note ---
Date of Service: April 07, 2021 From a GI standpoint, there was no obvious lesion noted that corresponded to the CT report, however blood was found in the stomach. Biopsies were obtained and are pending. We will provide further recommendations pending results of this testing. In the interim, continue Protonix 40 mg BID.
--- NOTE | 2021-04-07 11:58 | Discharge Summary ---
Date of Service April 07, 2021 Admission HPI Per Admitting Provider The patient is a 70-year-old male with no significant past medical history, who presents with the above symptoms. He reports that he runs every other day, and on the opposite days, does exercise such as push-ups. He presents with worsening symptoms and he and his are concerned regarding his excessive weight loss and inability to hold food or liquids down. They cannot quantitate how much weight he has lost and over what interval of time. Admission Exam Per Admitting Provider The patient is awake, alert and oriented 3, appears very thin, normocephalic and atraumatic, lying in bed and in no acute distress. HEENT--PERRL, EOMI, mucous membranes and oropharynx normal. Neck--supple. No JVD. No bruits. Thyroid normal, trachea midline, no adenopathy. Heart--normal S1 and S2. No murmurs, rubs or gallops. Lungs--clear bilaterally, no respiratory distress, no accessory muscle use. Abdomen--normal bowel sounds and soft. Nontender. Nondistended. Extremities--no cyanosis or clubbing. No edema. Dermatologic--normal skin turgor, normal color, no abnormal lymph nodes, no rash. Neurologic--cranial nerves II through XII grossly intact. Rheumatologic--normal range of motion. Psychiatric--normal affect. Principal Diagnosis Hepatic Metastases Dysphagia Discharge Exam General: A&Ox3. NAD. Cooperative. Thin/cachectic. HEENT: Atraumatic, normocephalic. Pulm: CTAB A&P. -wheezes, -rales, -rhonchi. Symmetrical chest rise. No increase work of breathing. No respiratory distress. Cardiac: RRR, -mrg. Radial pulses intact and symmetrical. Abdominal: soft, non-tender, non-distended, BS x 4 Skin: warm, dry, no rash Discharge Data Allergies Allergy/AdvReac Type Severity Reaction Status Date / Time No Known Allergies Allergy Verified 04/06/21 10:58 Consultations 04/05/21 23:03 ED Decision to Admit Stat 04/05/21 23:49 Consult Hematology Routine 04/06/21 02:20 Consult Gastroenterology Routine Procedures Performed Operation Date: 04/06/21 16:30 Actual Procedures p EGD Biopsy Cytology - Hollis Majano, DO Ordered Studies 04/05/21 21:19 CT abd pelvis IV con only Urgent CT chest diagnostic w con Urgent 04/06/21 08:52 US scrotum/testicle Routine Hospital Course (1) Dysphagia: The patient is a 70-year-old male with no significant past medical history who was admitted to [facility] on 02/03 for two weeks of progressive dysphagia and weight loss; found to have extensive liver metastases. Dysphagia, Weight Loss, Hepatic Metastases CT chest with distal esophageal wall thickening as well as multifocal hepatic metastasis, EGD with distal esophageal stenosis. Biopsy taken and pending. 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 - GI consulted - appreciate recs - esophageal biopsy taken on 04/06 - pending - continue diet as tolerated after discharge - continue Protonix 40mg PO BID for now - f/u with GI as outpatient - IVFs administered while hospitalized - patient was able to tolerate clears without nausea/vomiting before discharge - Heme/Onc consulted - patient will follow with Dr. Carcamo as an outpatient for further diagnostic steps and treatment options - patient is interested in palliative care and will follow up with Palliative as an outpatient - f/u with PCP (2) Weight loss, abnormal: (3) Liver metastases: (4) Vomiting: (5) Abnormal CT scan, esophagus: (6) Weakness: (7) Dehydration: Total Time Total Time Spent Total Time Spent (In Minutes): 30 minutes Discharge Plan Discharge Items Patient Disposition: Home - Self-Care Reason For Visit: WEAKNESS, WT LOSS, NEW LIVER METS:ESOPHAGUS DEBRIS Discharge Diagnosis: Liver Metastases Dysphagia Activity: Per Instructions section Non-emergency contact: Primary Care Provider, Specialist, Deposit Refund Clerk and Oncologist Call non-emergency contact if: your symptoms worsen and your pain is not controlled Follow-up/Referrals: Hollis Majano DO [Physician] - (PLEASE CALL DR MAJANO'S OFFICE TO SCHEDULE AN APPOINTMENT IN 2-3 WEEKS.) Anish Carcamo DO [Physician] - (PLEASE CALL DR CARCAMO'S OFFICE TO SCHEDULE AN APPOINTMENT FOR 1-2 WEEKS.) Kanwal Moralez MD [Physician] - 04/14/21 1:30 pm (Palliative Care) Jack Lynn MD [Primary Care Provider] - 04/10/21 9:30 am () Diet: Regular Addtl Attending Provider Instructions: You were admitted to [facility] from 04/05 - 04/07 for trouble swallowing. You were found to have several liver masses that likely represent advanced cancer. Our Oncologist was consulted and you should follow up with him after this hospitalization for options about treatment. We consulted our GI doctor for your trouble swallowing, and they did an upper scope that showed closure of your lower esophagus; there was a biopsy taken of the lower esophagus and the results are pending. It is possible that you have cancer in the esophagus that has spread to your liver, but we will have more information about this when the biopsy results. You should also follow up with your GI doctor a fter the hospital. You will be discharged on 04/07. You should follow up with your PCP, GI doctor, and Oncologist. You should also follow up with our surgery specialist. Please continue to take your home medications as scheduled. You can take Tylenol or Ibuprofen for pain, if necessary. Please do not hesitate to return to the ER if you cannot tolerate liquids or solids again. Pending Studies at Discharge: Yes Studies:: esophageal biopsy pathology results Stand-Alone Forms: My [facility], Smoking Cessation Medications and DC Order Prescriptions: New pantoprazole [Protonix] 40 mg tablet,delayed release (DR/EC) 40 mg PO BID 14 Days Qty: 28 RF: 0 Continued multivitamin Tablet 1 tab PO HS RF: 0 diphenhydramine HCl 50 mg Capsule 50 mg PO HS PRN (Reason: Sleep) RF: 0 cholecalciferol (vitamin D3) [Vitamin D3] 50 mcg (2,000 unit) Capsule 50 mcg PO HS RF: 0 omega 9-onu-lug-fish oil 500-1,000 mg Capsule 1 cap PO HS RF: 0 Discharge Orders: Discharge Order (Routine); Ordered 04/07/21 Ordered By: Joey Burrows Admission Data Admit Date/Time: 04/05/21 23:49 Attending Provider: Ramakrishna Diez Admit Provider: Kenneth Nguyen Primary Care Provider: Jack Lynn Other Providers: Anish Carcamo V. ; Kenneth Nguyen ; Hollis Majano Other Interventions: Discharge Summary Assessment (RN) Last Done: 04/07/21 11:58 Supervising Physician Co-Signing Physician Notes Attending attestation Pt seen and examined in concert with Dr. Burrows. In agreement with the documented findings as noted in the resident documentation with any exceptions or additions as noted here. 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 On examination, S1/S2 nl RRR no MCG. CTAB. Abd NT/ND BS+ve Dysphagia in the setting of newly diagnosed esophageal mass with ?metastatic hepatic disease - gastroenterology consultation - EGD concerning for esophgeal primary - discussion of goals of care and further w/u including connection with oncology and palliative care, as well as recommendation for nutritional support, all of which will be coordinated as outpatient by request of patient. Else see resident documentation as noted. Total attending time spent on this case on the day of discharge: 35 minutes. Resident Activity Tracking Resident Involvement: Resident Care Provided Care Provided: Adult Hospital Medicine
[2021-04-07] MEDS: NSS + 20MEQ KCL 20 MEQ/1,000 ML BAG IV SCH (12:23)
== END 2021-04-07 12:44 | disposition home or self-care (01) ==
LOC: ED 19:28 → INTOOBSV 23:49 → 2S 23:49 → SUATTDRO 23:49 → 2S 04-06 01:52 → 2W 04-06 17:52